=== PATIENT | male | born 1975 | race Caucasian/White ===

== ENCOUNTER → 2018-05-08 | Outpatient (CLI) | payer OTHER | LOC: LAB 11:47 | PROVIDERS: ATTEND Nurse Practitioner | DX: L57.0 Actinic keratosis (principal) | CPT/HCPCS: 88305 ==

== ENCOUNTER 2018-07-16 03:03 | Emergency (ER) | payer OTHER ==
--- NOTE | 2018-07-16 03:26 | ER Report ---
History and Physical Time Seen By MD: 03:16 Hx. of Stated Complaint: PATIENT STARTED HAVING TROUBLE BREATHING ABOUT 2HOURS AGO, PATIENT FEELS LIKE HE ISN'T GETTING A DEEP BREATH. PATIENT HAD A STUFFY NOSE LAST NIGHT, TOOK NASAL SPRAY AT 2200, IT REALLY STUNG AND BURNED HIS NOSE AND THEN A LITTLE. HPI/ROS CHIEF COMPLAINT: trouble breathing HISTORY OF PRESENT ILLNESS: This is a 42 year old male. He was having a little nasal irritation and used a nasal spray which caused severe burning in his sinuses, especially the left side maxillary area. Some down into throat. After this, started to have some shortness of breath, more of a feeling of not being able to take a deep breath. He has been healthy recently. 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 He denies any cough prior to tonight. He has no chest pain with breathing. No sore throat or trouble swallowing. He did take some inhales from his albuterol, but did not help. No fevers or chills. No sick contacts. He does smoke, but no history of other lung diseases. REVIEW OF SYSTEMS: As above Allergies: Coded Allergies: No Known Drug Allergies (Unverified , 07/16/18) Home Meds No Active Prescriptions or Reported Meds Reviewed Nurses Notes: Yes Constitutional Vital Sign - Last 24 Hours 07/16/18 07/16/18 07/16/18 07/16/18 03:06 03:30 03:42 03:48 Temp 97.8 Pulse 52 58 Resp 22 B/P (MAP) 146/95 130/90 (103) 130/91 (104) Pulse Ox 98 O2 Delivery Room Air 07/16/18 07/16/18 07/16/18 04:00 04:03 04:18 Pulse 54 61 Resp 9 28 B/P (MAP) 128/88 (101) Pulse Ox 94 96 Physical Exam General Appearance: The patient is alert. No acute distress. Eyes: Pupils are equal, round. No pallor, injection or icterus. ENT: Mucous membranes are moist. Normal oral mucosa. Posterior oropharynx has some erythema, but no drainage or exudates or hypertrophy. His nasal mucosa is a little erythematous. Normal TM and canals bilaterally. Neck: Supple and non tender. No lymphadenopathy. Respiratory: Lungs had some rhonchi. No wheezing or rales. There are no retractions or accessory muscle use. Cardiovascular: Regular rate and rhythm. No murmurs, gallops or rubs. Normal cap illary refill. Gastrointestinal: Abdomen is soft and non tender. Nondistended. Normal active bowel sounds. Neurological: Alert and oriented x3. Skin: Warm and dry. No rashes. Musculoskeletal: Extremities are nontender. No tenderness in palpation of the cervical, thoracic and lumbar spine. DIFFERENTIAL DIAGNOSIS: After history and physical exam, differential diagnosis was considered for shortness of breath including but not limited to pulmonary infectious process, inflammatory response, pulmonary embolus, acute coronary syndrome and congestive heart failure. Medical Decision Making Data Points Result Diagram: 07/16/18 0326 07/16/18 0326 Laboratory Hematology Test 07/16/18 03:26 Red Blood Count 4.64 M/uL (4.00-5.60) Mean Corpuscular Volume 91.3 fL (80.0-96.0) Mean Corpuscular Hemoglobin 31.8 pg (26.0-33.0) Mean Corpuscular Hemoglobin Concent 34.9 g/dL (32.0-36.0) Red Cell Distribution Width 15.0 % (11.5-14.5) Mean Platelet Volume 8.3 fL (7.2-11.1) Neutrophils (%) (Auto) 66.4 % (39.4-72.5) Lymphocytes (%) (Auto) 24.3 % (17.6-49.6) Monocytes (%) (Auto) 6.8 % (4.1-12.4) Eosinophils (%) (Auto) 2.3 % (0.4-6.7) Basophils (%) (Auto) 0.2 % (0.3-1.4) Nucleated RBC Relative Count (auto) 0.0 /100WBC Neutrophils # (Auto) 5.7 K/uL (2.0-7.4) Lymphocytes # (Auto) 2.1 K/uL (1.3-3.6) Monocytes # (Auto) 0.6 K/uL (0.3-1.0) Eosinophils # (Auto) 0.2 K/uL (0.0-0.5) Basophils # (Auto) 0.0 K/uL (0.0-0.1) Nucleated RBC Absolute Count (auto) 0.00 K/uL D-Dimer Quantitative (PE/DVT) 0.29 ug/ml (0-0.50) Sodium Level 140 mmol/L (137-145) Potassium Level 4.3 mmol/L (3.5-5.0) Chloride Level 107 mmol/L (98-107) Carbon Dioxide Level 27 mmol/L (22-30) Blood Urea Nitrogen 21 mg/dl (9-21) Creatinine 1.00 mg/dl (0.66-1.25) Glomerular Filtration Rate Calc > 60.0 Random Glucose 104 mg/dl (75-110) Calcium Level 8.9 mg/dl (8.4-10.2) Total Bilirubin 0.3 mg/dl (0.2-1.3) Aspartate Amino Transf (AST/SGOT) 46 U/L (0-35) Alanine Aminotransferase (ALT/SGPT) 44 U/L (0-56) Alkaline Phosphatase 75 U/L (0-126) Troponin I < 0.012 ng/ml B-Type Natriuretic Peptide 18 pg/ml (0-100) Total Protein 6.0 g/dl (6.3-8.2) Albumin 3.6 g/dl (3.5-5.0) Chemistry Test 07/16/18 03:26 White Blood Count 8.6 k/uL (4.5-11.0) Red Blood Count 4.64 M/uL (4.00-5.60) Hemoglobin 14.8 g/dL (14.0-18.0) Hematocrit 42.4 % (42.0-52.0) Mean Corpuscular Volume 91.3 fL (80.0-96.0) Mean Corpuscular Hemoglobin 31.8 pg (26.0-33.0) Mean Corpuscular Hemoglobin Concent 34.9 g/dL (32.0-36.0) Red Cell Distribution Width 15.0 % (11.5-14.5) Platelet Count 181 K/uL (150-450) Mean Platelet Volume 8.3 fL (7.2-11.1) Neutrophils (%) (Auto) 66.4 % (39.4-72.5) Lymphocytes (%) (Auto) 24.3 % (17.6-49.6) Monocytes (%) (Auto) 6.8 % (4.1-12.4) Eosinophils (%) (Auto) 2.3 % (0.4-6.7) Basophils (%) (Auto) 0.2 % (0.3-1.4) Nucleated RBC Relative Count (auto) 0.0 /100WBC Neutrophils # (Auto) 5.7 K/uL (2.0-7.4) Lymphocytes # (Auto) 2.1 K/uL (1.3-3.6) Monocytes # (Auto) 0.6 K/uL (0.3-1.0) Eosinophils # (Auto) 0.2 K/uL (0.0-0.5) Basophils # (Auto) 0.0 K/uL (0.0-0.1) Nucleated RBC Absolute Count (auto) 0.00 K/uL D-Dimer Quantitative (PE/DVT) 0.29 ug/ml (0-0.50) Glomerular Filtration Rate Calc > 60.0 Calcium Level 8.9 mg/dl (8.4-10.2) Total Bilirubin 0.3 mg/dl (0.2-1.3) Aspartate Amino Transf (AST/SGOT) 46 U/L (0-35) Alanine Aminotransferase (ALT/SGPT) 44 U/L (0-56) Alkaline Phosphatase 75 U/L (0-126) Troponin I < 0.012 ng/ml B-Type Natriuretic Peptide 18 pg/ml (0-100) Total Protein 6.0 g/dl (6.3-8.2) Albumin 3.6 g/dl (3.5-5.0) Coagulation Test 07/16/18 03:26 D-Dimer Quantitative (PE/DVT) 0.29 ug/ml EKG/Imaging EKG Interpretation 12 lead EKG: Rhythm: Sinus bradycardia, rate 51 [place]: normal QRS: normal ST segments: normal Imaging CHEST: Indication: Respiratory distress. Technique: Frontal and lateral views were obtained. Comparison: None. Skeletal and soft tissue structures: Intact and unremarkable. Heart and mediastinum: Within normal limits. Lung pinto: There is generalized hyperinflation. No focal parenchymal opacities are identified. Pleural spaces: No evidence of pneumothorax or effusion. Impression: Hyperinflation. No focal parenchymal or pleural abnormality. Report Dictated By: Flavio Martínez MD at 07/16/2018 3:55 AM ED Course/Re-evaluation Clinical Indication for ER IV: IV Access ED Course Negative labs, imaging and EKG as noted above. Reviewed these findings with the patient. Uncertain exact cause of shortness of breath at this time, suspect the nasal spray used causing an inflammatory or irritating reaction. Decision to Disposition Date: Jul 16, 2018 Decision to Disposition Time: 04:22 Depart Departure Latest Vital Signs Vital Signs Date Time Temp Pulse Resp B/P (MAP) Pulse Ox O2 Delivery O2 Flow Rate FiO2 07/16/18 04:18 61 28 96 07/16/18 04:00 128/88 (101) 07/16/18 03:06 97.8 Room Air Impression: Primary Impression: Shortness of breath Condition: Improved Disposition: HOME OR SELF-CARE New Scripts No Active Prescriptions or Reported Meds Patient Instructions: Dyspnea (ED) Additional Instructions: Labs and imaging were negative tonight. EKG looked good. Uncertain what has caused the cough and feeling of being unable to breath, but the most likely cause was the nasal medicine causing an irritant reaction or inflammation. We recommend using a simple nasal saline spray to help reduce irritation. Start Prednisone 20mg tablets. 2 tablets this morning and 2 more tomorrow morning to reduce inflammation. Watch for signs of worsening cough and fevers and is worsening return for re- evaluation at you doctor, urgent care or back here at the ER. DRAKE NOLEN MD Jul 16, 2018 03:26
[2018-07-16 03:37] LABS: PLATELET COUNT, AUTOMATED 181 K/uL (150-450)
[2018-07-16 04:00] VITALS: BP 128/88
--- NOTE | 2018-07-16 04:01 | RADIOLOGY IMAGING REPORT ---
FACILITY: [facility] [place] PATIENT NAME: Casimiro Brannon : 1975 MR: [id number] V: [id number] EXAM DATE: ORDERING PHYSICIAN: DRAKE NOLEN TECHNOLOGIST: Location: [facility] Patient: Casimiro Brannon : 1975 Visit/Account:[id number] Date of Sevice: 07/16/2018 CHEST: Indication: Respiratory distress. Technique: Frontal and lateral views were obtained. Comparison: None. Skeletal and soft tissue structures: Intact and unremarkable. Heart and mediastinum: Within normal limits. Lung pinto: There is generalized hyperinflation. No focal parenchymal opacities are identified. Pleural spaces: No evidence of pneumothorax or effusion. Impression: Hyperinflation. No focal parenchymal or pleural abnormality. Report Dictated By: Flavio Martínez MD at 07/16/2018 3:55 AM Report E-Signed By: Flavio Martínez MD at 07/16/2018 3:57 AM WSN:[email or web address]
[2018-07-16] MEDS ORDERED: predniSONE 20 MG TAB PO ONE (04:25)
--- NOTE | 2018-07-16 05:30 | EKG ---
FACILITY: [facility] PATIENT NAME: CATERINA ALVAREZ : [id number] MR: [id number] V: [id number] EXAM DATE: ORDERING PHYSICIAN: DRAKE NOLEN TECHNOLOGIST: [place] Test Reason : SOB Blood Pressure : / mmHG Vent. Rate : 051 BPM Atrial Rate : 051 BPM P-R Int : 140 ms QRS Dur : 084 ms QT Int : 454 ms P-R-T Axes : 065 061 046 degrees QTc Int : 418 ms Sinus bradycardia Septal infarct , age undetermined Abnormal ECG No previous ECGs available Confirmed by CONI JIMENES ([id number]) on 07/16/2018 6:32:58 AM Referred By: Confirmed By:CONI JIMENES
== END 2018-07-16 04:34 | disposition home or self-care (01) ==
LOC: ER 03:34
DX: R06.02 Shortness of breath (principal); R00.1 Bradycardia, unspecified
CPT/HCPCS: 71046; 83880; 84484; 85025; 85379; 93005; 99283; J7512; 82040; 82247; 82310; 82374; 82435; 82565; 82947; 84075; 84132; 84155; 84295; 84450; 84460; 84520

== ENCOUNTER 2019-05-19 16:23 | Emergency (ER) | payer OTHER ==
[2019-05-19] MEDS ORDERED: DIPHTH/TETANUS/ACEL. PERTUSSIS IM ONLY ONE (16:35)
[2019-05-19 16:41] VITALS: BP 139/98
--- NOTE | 2019-05-19 16:43 | ER Report ---
History and Physical Time Seen By MD: 16:32 HPI/ROS CHIEF COMPLAINT: Left forearm laceration HISTORY OF PRESENT ILLNESS: This is a 43-year-old male who presents to the emergency department for a left forearm laceration. Patient states that just prior to arrival, he was working with some glass, a big sheet of plate glass broke and lacerated his left forearm, they were concerned that it was arterial and squirting out. Upon arrival the bleeding is controlled it is oozing. Patient is having some difficulties extending his hand however he is able to hold against resistance, CMS is otherwise intact. No other injuries. No chest pain or shortness breath. No recent fevers or chills. REVIEW OF SYSTEMS: Constitutional: No fever, no chills. Eyes: No discharge. ENT: No sore throat. Cardiovascular: No chest pain, no palpitations. Respiratory: No cough, no shortness of breath. Gastrointestinal: No abdominal pain, no vomiting. Genitourinary: No hematuria. Musculoskeletal: As above. Skin: As above. Neurological: No headache. Allergies: Coded Allergies: No Known Drug Allergies (Unverified , 05/19/19) Home Meds Active Scripts Cephalexin 500 Mg Tab (KEFLEX 500 MG TAB) 500 Mg Tablet, 500 MG PO Q6H, #28 TAB Prov:DAVIDTRUDYKAYKAYABHI SUPERVISOR PUMPING- 05/19/19 Past Medical/Surgical History The patient has no significant past medical or surgical history. Reviewed Nurses Notes: Yes Constitutional Vital Sign - Last 24 Hours 05/19/19 05/19/19 05/19/19 16:30 16:41 17:00 Temp 98.4 Pulse 71 71 68 Resp 20 B/P (MAP) 139/98 Pulse Ox 92 93 91 O2 Delivery Room Air Physical Exam General Appearance: The patient is alert, has no immediate need for airway protection and no signs of toxicity. Eyes: Pupils equal and round no pallor or injection. ENT, Mouth: Mucous membranes are moist. Respiratory: There are no retractions, lungs are clear to auscultation. Cardiovascular: Regular rate and rhythm. Gastrointestinal: Abdomen is soft and non tender, no masses, bowel sounds normal. Skin: 5 cm laceration to the left forearm, involving the fascia and muscle belly. Musculoskeletal: Neck is supple non tender. Extremities patient having difficulties extending the left hand however he is able to apply resistance, this. At CMS is intact, he states that he is having pain proximally to the laceration, likely from the muscle laceration. DIFFERENTIAL DIAGNOSIS: After history and physical exam differential diagnosis was considered for arterial bleed, laceration, tendon laceration, foreign body. Medical Decision Making EKG/Imaging Imaging PATIENT NAME: Casimiro Brannon : 1975 MR: [id number] V: [id number] EXAM DATE: ORDERING PHYSICIAN: ABHI SINGER TECHNOLOGIST: Location: [facility] [place] Patient: Casimiro Brannon : 1975 Visit/Account:[id number] Date of Sevice: 05/19/2019 Exam type: FOREARM LEFT History: EVAL FOR GLASS FOREIGN BODY Comparison: None. Findings: There is a soft tissue laceration seen along the lateral aspect of the mid left forearm. No underlying fracture or radiopaque soft tissue foreign body is seen IMPRESSION: 1. Deep laceration seen along the lateral aspect mid left forearm although no underlying fracture or radiopaque soft tissue foreign body seen Report Dictated By: Keira Roque MD at 05/19/2019 4:56 PM Report E-Signed By: Keira Roque MD at 05/19/2019 4:57 PM WSN:[email or web address] ED Course/Re-evaluation ED Course Patient was admitted to room. A history and physical obtained. Differential diagnoses were considered. An x-ray of the left forearm were negative for foreign body. The wound was thoroughly cleansed, and repaired as noted below. The patient was started on antibiotics. I did have the patient follow up [facility] for reevaluation. Patient had no other questions or concerns at this time and discharged home. Procedure: Laceration repair. Verbal consent was obtained from the patient. The deep 3.5 cm laceration on the left forearm was anesthetized in the usual fashion. The wound was scrubbed, draped and explored to its base with a gloved finger. The muscle fascia was involved, muscle belly was lacerated, No tendon injury was identified. The wound was repaired with 5, 5-0 Vicryl simple interrupted sutures, 7, 5-0 Prolene simple interrupted sutures. The wound repair was complex. The procedure was performed by myself. Decision to Disposition Date: May 19, 2019 Decision to Disposition Time: 17:29 Depart Departure Latest Vital Signs Vital Signs Date Time Temp Pulse Resp B/P (MAP) Pulse Ox O2 Delivery O2 Flow Rate FiO2 05/19/19 17:00 68 91 05/19/19 16:41 98.4 20 139/98 Room Air Impression: Primary Impression: Laceration of left forearm Condition: Improved Disposition: HOME OR SELF-CARE Referrals: CHERI GOMEZ MD 5 Days New Scripts Cephalexin 500 Mg Tab (KEFLEX 500 MG TAB) 500 Mg Tablet 500 MG PO Q6H, #28 TAB Prov: ABHI SINGER-BC 05/19/19 Patient Instructions: Acute Wound Care (ED), Laceration (DC) Additional Instructions: No foreign body seen on x-ray. I do want her to follow-up with [facility] next week for reevaluation, follow-up sooner if he had any other concerns. I am starting her on antibiotics, please take the Keflex as prescribed. Keep wound dry for 48 hours. Follow up with your primary care provider in the next 10 days to have sutures removed. Monitor for signs of infection; redness, swelling, heat, discharge, increasing pain or red streaking. Take Tylenol or Ibuprofen as needed for pain. Return to the ER with any concerns. You may change dressing as needed. Problem Qualifiers Primary Impression: Laceration of left forearm Encounter type: initial encounter Qualified Codes: S51.812A - Laceration without foreign body of left forearm, initial encounter ABHI SINGER SUPERVISOR PUMPING-BC May 19, 2019 16:43
--- NOTE | 2019-05-19 17:03 | RADIOLOGY IMAGING REPORT ---
FACILITY: [facility] PATIENT NAME: Casimiro Brannon : 1975 MR: [id number] V: [id number] EXAM DATE: ORDERING PHYSICIAN: ABHI SINGER TECHNOLOGIST: Location: [facility] [place] Patient: Casimiro Brannon : 1975 Visit/Account:[id number] Date of Sevice: 05/19/2019 Exam type: FOREARM LEFT History: EVAL FOR GLASS FOREIGN BODY Comparison: None. Findings: There is a soft tissue laceration seen along the lateral aspect of the mid left forearm. No underlyi ng fracture or radiopaque soft tissue foreign body is seen IMPRESSION: 1. Deep laceration seen along the lateral aspect mid left forearm although no underlying fracture or radiopaque soft tissue foreign body seen Report Dictated By: Keira Roque MD at 05/19/2019 4:56 PM Report E-Signed By: Keira Roque MD at 05/19/2019 4:57 PM WSN:[email or web address]
[2019-05-19] MEDS ORDERED: CEPH500T7 PO (17:33)
== END 2019-05-19 17:40 | disposition home or self-care (01) ==
LOC: ER 16:28
DX: S51.812A Laceration without foreign body of left forearm, initial encounter (principal); W25.XXXA Contact with sharp glass, initial encounter
CPT/HCPCS: 90471; 90715; 99283